=== PATIENT | male | born 2000 | race Two or more races ===

== ENCOUNTER 2022-02-20 08:16 | Emergency (ER) | payer OTHER ==
[~2022-02-20] VITALS: Ht 167.6 cm; Wt 95.3 kg
[2022-02-20 08:17] VITALS: BP 131/88
[2022-02-20] MEDS ORDERED: LIDOCAINE 1% HCL (LOCAL ANESTH.) INJ 20ML MDV IJ ONE (09:00)
[2022-02-20] MEDS ORDERED: TETANUS-DIPTH-ACEL PERTUSSIS 0.5ML SYR Tdap IM ONE (09:30)
[2022-02-20] MEDS ORDERED: CEPH500C PO (09:55)
[2022-02-20] MEDS ORDERED: NAPR500T31 PO (09:55)
== END 2022-02-20 09:55 | disposition home or self-care (01) ==
LOC: ER 08:16
DX: S61.042A Puncture wound with foreign body of left thumb without damage to nail, initial encounter (principal); W22.8XXA Striking against or struck by other objects, initial encounter; Y93.89 Activity, other specified; Y92.69 Other specified industrial and construction area as the place of occurrence of the external cause; Y99.8 Other external cause status
CPT/HCPCS: 10120; 73140; 90471; 90715